=== PATIENT | female | born 1975 | race African-American/Black ===

== ENCOUNTER 2024-04-29 10:12 | Emergency (ER) | payer MEDICARE, MEDICAID ==
[~2024-04-29] VITALS: Ht 157.5 cm; Wt 74.8 kg
[2024-04-29 10:31] VITALS: O2SAT 100
[2024-04-29] MEDS ORDERED: FLUORESCEIN SODIUM 1MG/STRIP RIGHTEYE ONE (12:15)
[2024-04-29] MEDS ORDERED: TETRACAINE 0.5% OPHTH DROPS 4ML RIGHTEYE ONE (12:15)
[2024-04-29] MEDS ORDERED: OCUFLX RIGHTEYE (13:08)
[2024-04-29] MEDS ORDERED: AMOX1TAB16 MT (13:08)
[2024-04-29] MEDS ORDERED: IBUP-2028 MT (13:08)
[2024-04-29 13:21] VITALS: BP 132/85; PULSE 77; RESP 18; TEMP 37.05852; O2SAT 100
== END 2024-04-29 13:22 | disposition home or self-care (01) ==
LOC: ER 11:24
DX: H10.9 Unspecified conjunctivitis (principal); L03.213 Periorbital cellulitis; E11.9 Type 2 diabetes mellitus without complications; E78.00 Pure hypercholesterolemia, unspecified; I10 Essential (primary) hypertension
CPT/HCPCS: 99283